=== PATIENT | male | born 1965 | race Two or more races ===

== ENCOUNTER → 2023-11-15 | Outpatient (CLI) | payer OTHER ==
[~2023-11-15] VITALS: Ht 182.9 cm; Wt 142.9 kg
[~2023-11-15] MED LIST: ASPI81CH59 PO; CARV25TA55 PO; CINA30TA2 PO; FURO40TA4 PO; OXYC-998 PO
== END | disposition home or self-care (01) ==
LOC: LAB 11:13 → EDSTATUS 11-19 12:00
PROVIDERS: ATTEND Surgery Vascular Surgery
DX: N18.9 Chronic kidney disease, unspecified (principal)
CPT/HCPCS: 86850; 86900; 86901

== ENCOUNTER → 2024-09-23 | Outpatient (CLI) | payer OTHER ==
[~2024-09-23] VITALS: Ht 182.9 cm; Wt 138.3 kg
[2024-09-23] MEDS: REGADENOSON 0.4 MG/5 ML SYRG IV ONE ×2 (12:27→12:40)
--- NOTE | 2024-09-24 07:39 | DVHSR ---
APPROVED REPORT Exam: Nuclear Stress Test Indication: HTN Stress Tech: Ashley Anderson Ht: 6 ft 0 in Wt: 305 lbs BSA: 2.55 m2 HR: 74 bpm BP: 157/99 mmHg BMI: 41.36 Rhythm: NSR Medical History Medical History: CHF, Chews Tobacco, Obesity, HTN Allergies: No known drug allergies Stress Test Details Stress Test: Pharmacologic stress testing performed using 0.4 mg of regadenoson per 5 mL given IV ov er 10 seconds. Reason for pharmacologic stress test: HTN. HR Resting HR: 74 bpmMax Heart Rate (APMHR): 162.245758 bpm Max HR Achieved: 86 bpmTarget HR (85% APMHR): 137.355366 bpm % of APMHR: 53.09 Recovery HR: 77 bpm BP Resting BP: 157/99 mmHg Recovery BP: 160/93 mmHg ECG Resting ECG: NSR Clinical Reason for Termination: Completed protocol Nurse Comments Uneventful stress test performed per protocol. Patient tolerated well and patient taken back to [facility] via wheelchair in stable condition with tech. Stress ECG Conclusion lvef 55% inferior wall fixed defect noted no ischemia noted normal ecg NM EXAM: Myocardial Perfusion REST/STRESS Imaging Protocol: Rest Tc-99m/Stress Tc-99m 1 day Resting Data Rest SPECT myocardial perfusion imaging was performed in supine position 60 minutes following the int ravenous injection of 14 mCi of Tc-99m Sestamibi. Time of rest injection: 1045 Time of rest imagin Administration Route: IV Administration Site: Left Hand Pharmacologic Stress Pharmacologic stress test was performed by injecting Regadenoson 0.4 mg IV push followed by the intra venous injection of 33 mCi of Tc-99m Sestamibi. Time of stress injection: 1227 Time of stress imagin Administration Route: IV Administration Site: Left Hand Gated Stress SPECT was performed 60 minutes after stress injection. The images were gated to evaluate regional wall motion and calculate left ventricular ejection fracti on. Stress only was performed in the Supine position. Nuclear Conclusion Nuclear Findings: negative for ischemia lvef 55% inferior wall fixed defect noted no ischemia noted normal ecg
== END | disposition home or self-care (01) ==
LOC: XYW 10:12
PROVIDERS: ATTEND Internal Medicine
DX: I11.0 Hypertensive heart disease with heart failure (principal); I50.9 Heart failure, unspecified; E66.9 Obesity, unspecified; Z68.41 Body mass index [BMI] 40.0-44.9, adult
CPT/HCPCS: 93017; J2785; 78452